=== PATIENT | female | born 1970 | race American Indian/Alaskan Native ===

== ENCOUNTER 2017-07-19 07:13 | Emergency (ER) | payer SELFPAY ==
--- NOTE | 2017-07-19 13:06 | Emergency Department Report ---
ED ENT HPI - General Chief complaint: Earache Stated complaint: LEFT EAR PAIN Time Seen by Provider: 07/19/17 12:34 Source: patient Mode of arrival: Ambulatory Limitations: No Limitations - History of Present Illness Initial comments: This is a 46-year-old female nontoxic, well nourished in appearance, no acute signs of distress presents to the ED with c/o of left earache x3 days. Patient stated this is a chronic intermittent earache that she develops and last episode was 2 months ago and was prescribed augmentin and "ear drops". Patient denies any hearing changes or hearing loss. Patient denies mastoid tenderness. Denies any fever, chills, headache, nausea, vomiting, numbness, tingling, chest pain, shortness of breathe, stiff neck. Patient states has tragus pain. Denies any ear discharge. Patient denies any drug allergies. PMH includes GERD. MD complaint: ear pain -: days(s) (3) Location: L ear Severity: mild Severity scale (0 -10): 8 Quality: aching Consistency: constant Improves with: none Worsens with: none Associated Symptoms: denies: fever, cough, gum swelling, toothache, pain with swallowing, sore throat, tinnitus, hearing loss, discharge from ear, rhinorrhea - Related Data Home Medications Medication Instructions Recorded Confirmed Last Taken Loratadine [Claritin] 10 mg PO DAILY 09/22/13 09/22/13 10/01/13 15:00 Ranitidine HCl [Ranitidine HCl] 150 mg PO DAILY 09/22/13 09/22/13 10/01/13 15:00 Simvastatin [Simvastatin] 20 mg PO DAILY 09/22/13 09/22/13 10/02/13 18:00 Previous Rx's Medication Instructions Recorded Last Taken Type HYDROcodone/APAP 5-325 [[place] 2 each PO Q6H PRN #30 tablet 10/04/13 Unknown Rx 5-325 mg TAB] Amoxicillin/Potassium Clav 1 each PO Q12H #20 tablet 07/19/17 Unknown Rx [Augmentin 500-125 Tablet] Ciprofloxacin/Hydrocortisone 3 drop OT BID 7 Days bottle 07/19/17 Unknown Rx [Ciprofloxacin HC OTIC] Allergies Allergy/AdvReac Type Severity Reaction Status Date / Time No Known Allergies Allergy Unverified 09/22/13 08:24 ED Dental HPI - General Chief complaint: Earache Stated complaint: LEFT EAR PAIN Time Seen by Provider: 07/19/17 12:34 Source: patient Mode of arrival: Ambulatory Limitations: No Limitations - Related Data Home Medications Medication Instructions Recorded Confirmed Last Taken Loratadine [Claritin] 10 mg PO DAILY 09/22/13 09/22/13 10/01/13 15:00 Ranitidine HCl [Ranitidine HCl] 150 mg PO DAILY 09/22/13 09/22/13 10/01/13 15:00 Simvastatin [Simvastatin] 20 mg PO DAILY 09/22/13 09/22/13 10/02/13 18:00 Previous Rx's Medication Instructions Recorded Last Taken Type HYDROcodone/APAP 5-325 [[place] 2 each PO Q6H PRN #30 tablet 10/04/13 Unknown Rx 5-325 mg TAB] Amoxicillin/Potassium Clav 1 each PO Q12H #20 tablet 07/19/17 Unknown Rx [Augmentin 500-125 Tablet] Ciprofloxacin/Hydrocortisone 3 drop OT BID 7 Days bottle 07/19/17 Unknown Rx [Ciprofloxacin HC OTIC] Allergies Allergy/AdvReac Type Severity Reaction Status Date / Time No Known Allergies Allergy Unverified 09/22/13 08:24 ED Review of Systems ROS: Stated complaint: LEFT EAR PAIN Other details as noted in HPI Constitutional: denies: chills, fever Eyes: denies: eye pain, eye discharge, vision change ENT: ear pain. denies: throat pain Respiratory: denies: cough, shortness of breath, wheezing Cardiovascular: denies: chest pain, palpitations Endocrine: no symptoms reported Gastrointestinal: denies: abdominal pain, nausea, diarrhea Genitourinary: denies: urgency, dysuria, discharge Musculoskeletal: denies: back pain, joint swelling, arthralgia Skin: denies: rash, lesions Neurological: denies: headache, weakness, paresthesias Psychiatric: denies: anxiety, depression Hematological/Lymphatic: denies: easy bleeding, easy bruising ED Past Medical Hx - Past Medical History Previous Medical History?: Yes Hx Hypertension: No Hx Congestive Heart Failure: No Hx Diabetes: No Hx GERD: Yes Hx Renal Disease: No Hx Seizures: No Hx Asthma: No Hx COPD: No - Surgical History Past Surgical History?: No - Social History Smoking Status: Never Smoker Substance Use Type: Alcohol - Medications Home Medications: Home Medications Medication Instructions Recorded Confirmed Last Taken Type Loratadine [Claritin] 10 mg PO DAILY 09/22/13 09/22/13 10/01/13 15:00 History Ranitidine HCl [Ranitidine HCl] 150 mg PO DAILY 09/22/13 09/22/13 10/01/13 15: 00 History Simvastatin [Simvastatin] 20 mg PO DAILY 09/22/13 09/22/13 10/02/13 18:00 History HYDROcodone/APAP 5-325 [[place] 2 each PO Q6H PRN #30 tablet 10/04/13 Unknown Rx 5-325 mg TAB] Amoxicillin/Potassium Clav 1 each PO Q12H #20 tablet 07/19/17 Unknown Rx [Augmentin 500-125 Tablet] Ciprofloxacin/Hydrocortisone 3 drop OT BID 7 Days bottle 07/19/17 Unknown Rx [Ciprofloxacin HC OTIC] ED Physical Exam - General Limitations: No Limitations General appearance: alert, in no apparent distress - Head Head exam: Present: atraumatic, normocephalic - Eye Eye exam: Present: normal appearance, PERRL, EOMI. Absent: scleral icterus, nystagmus, periorbital swelling, periorbital tenderness Pupils: Present: normal accommodation - ENT ENT exam: Present: normal exam, normal orophraynx, mucous membranes moist - Expanded ENT Exam Expanded Ear exam: Present: normal external inspection TM/Canal exam: Erythema: Left TM, Bulging: Left TM Mouth exam: Present: normal external inspection, tongue normal. Absent: drooling, trismus, muffled voice, tongue elevation, laceration Teeth exam: Present: normal inspection Throat exam: Positive: normal inspection. Negative: tonsillar erythema, tonsillomegaly, tonsillar exudate, R peritonsillar mass, L peritonsillar mass - Neck Neck exam: Present: normal inspection, full ROM. Absent: tenderness, meningismus, lymphadenopathy, thyromegaly - Respiratory Respiratory exam: Present: normal lung sounds bilaterally. Absent: respiratory distress, wheezes, rales, rhonchi, stridor, chest wall tenderness, accessory muscle use, decreased breath sounds, prolonged expiratory - Cardiovascular Cardiovascular Exam: Present: regular rate, normal rhythm, normal heart sounds. Absent: bradycardia, tachycardia, irregular rhythm, systolic murmur, diastolic murmur, rubs, gallop - GI/Abdominal GI/Abdominal exam: Present: soft, normal bowel sounds. Absent: distended, tenderness, guarding, rigid, diminished bowel sounds - Rectal Rectal exam: Present: deferred - Extremities Exam Extremities exam: Present: normal inspection, full ROM, normal capillary refill. Absent: tenderness - Back Exam Back exam: Present: normal inspection, full ROM. Absent: tenderness, CVA tenderness (R), CVA tenderness (L), muscle spasm, paraspinal tenderness, vertebral tenderness, rash noted - Neurological Exam Neurological exam: Present: alert, oriented X3, CN II-XII intact, normal gait, reflexes normal - Psychiatric Psychiatric exam: Present: normal affect, normal mood - Skin Skin exam: Present: warm, dry, intact, normal color. Absent: rash - Other Other exam information: Negative mastoid tenderness. Tenderness in the tragus region. No facial swelling. ED Course Vital Signs 07/19/17 07:34 Temperature 98.2 F Pulse Rate 87 Respiratory 16 Rate Blood Pressure 135/88 O2 Sat by Pulse 95 Oximetry - Reevaluation(s) Reevaluation #1: 07/19/17 13:10 Patient is speaking in full sentences with no signs of distress noted. ED Medical Decision Making - Medical Decision Making This is a 46-year-old female that presents with chronic intermittent otitis media and otitis extrna. Patient is stable and was examined by me. There is no mastoid tenderness or erythema. PAtient stated last episode was last month and received PO anibiotics and ear drops. PAtient is discharge with agumentin and cipro due to recurrent ear infections. Patient was instructed Follow-up with a ENT doctor in 3-5 days or if symptoms worsen and continue return to emergency room as soon as possible. At time time of discharge, the patient does not seem toxic or ill in appearance. No acute signs of distress noted. Patient agrees to discharge treatment plan of care. No further questions noted by the patient. Critical care attestation.: If time is entered above; I have spent that time in minutes in the direct care of this critically ill patient, excluding procedure time. ED Disposition Clinical Impression: Otitis media Qualifiers: Otitis media type: unspecified Laterality: right Qualified Code(s): H66.91 - Otitis media, unspecified, right ear Otitis externa Qualifiers: Otitis externa type: unspecified type Chronicity: unspecified Laterality: right Qualified Code(s): H60.91 - Unspecified otitis externa, right ear Disposition: DC-01 TO HOME OR SELFCARE Is pt being admited?: No Does the pt Need Aspirin: No Condition: Stable Instructions: Otitis Media (ED), Otitis Externa (ED) Additional Instructions: Follow-up with a primary care doctor in 3-5 days or if symptoms worsen and continue return to emergency room as soon as possible. Prescriptions: Amoxicillin/Potassium Clav [Augmentin 500-125 Tablet] 1 each PO Q12H #20 tablet Ciprofloxacin/Hydrocortisone [Ciprofloxacin HC OTIC] 3 drop OT BID 7 Days bottle Referrals: SHWETA MOONEY MD [Primary Care Provider] - 3-5 Days CHARLY TAM MD [Staff Physician] - 3-5 Days [facility] [Outside] - 3-5 Days [facility] [Outside] - 3-5 Days Forms: Work/School Release Form(ED)
[2017-07-19 13:41] VITALS: BP 136/89
== END 2017-07-19 13:41 | disposition home or self-care (01) ==
LOC: ED 07:13
DX: H66.91 Otitis media, unspecified, right ear (principal); H60.91 Unspecified otitis externa, right ear; K21.9 Gastro-esophageal reflux disease without esophagitis
CPT/HCPCS: 99282

== ENCOUNTER 2019-10-09 14:37 | Emergency (ER) | payer SELFPAY ==
[2019-10-09 14:48] VITALS: BP 146/85
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
== END 2019-10-09 15:50 | disposition left against medical advice (07) ==
LOC: ED 14:37
DX: S46.819A Strain of other muscles, fascia and tendons at shoulder and upper arm level, unspecified arm, initial encounter (principal); S39.012A Strain of muscle, fascia and tendon of lower back, initial encounter; V89.2XXA Person injured in unspecified motor-vehicle accident, traffic, initial encounter; Y93.89 Activity, other specified; Y92.410 Unspecified street and highway as the place of occurrence of the external cause; Y99.8 Other external cause status
CPT/HCPCS: 99282

== ENCOUNTER 2020-05-14 22:57 | Emergency (ER) | payer SELFPAY ==
[2020-05-15 02:15] LABS: Basophils % (Auto) 0.3 % (0.0-1.8); Eosinophils # (Auto) 0.1 K/mm3 (0.0-0.4); Eosinophils % (Auto) 0.8 % (0.0-4.3); Hematocrit 39.4 % (30.3-42.9); Hemoglobin 13.3 gm/dl (10.1-14.3); Lymphocytes # (Auto) 2.9 K/mm3 (1.2-5.4); Lymphocytes % (Auto) 44.4 % (13.4-35.0); Mean Corpuscular HGB Conc 34 % (30-34); Mean Corpuscular Volume 87 fl (79-97); Monocytes # (Auto) 0.5 K/mm3 (0.0-0.8); Monocytes % (Auto) 7.6 % (0.0-7.3); Platelet Count 280 K/mm3 (140-440); Red Blood Count 4.55 M/mm3 (3.65-5.03); Red Cell Distribution Width 13.6 % (13.2-15.2)
[2020-05-15 02:16] LABS: Alanine Aminotransferase 17 units/L (7-56); Albumin 4.5 g/dL (3.9-5); Blood Urea Nitrogen 11 mg/dL (7-17); Calcium 9.6 mg/dL (8.4-10.2); Hemolysis Index 8
[2020-05-15 02:27] LABS: BUN/Creatinine Ratio 18
[2020-05-15 05:16] LABS: Bacteria,Urine 2+ /HPF (Negative); Bilirubin,Urine NEG (Negative); Blood,Urine SM (Negative); Color,Urine Yellow (Yellow); Protein,Urine <15 mg/dL mg/dL (Negative); Urobilinogen,Urine < 2.0 mg/dL (<2.0)
--- NOTE | 2020-05-15 05:40 | Emergency Department Report ---
ED General Adult HPI - General Chief complaint: Abdominal Pain Stated complaint: RT EAR, LF SIDE PAIN Source: patient Mode of arrival: Ambulatory Limitations: No Limitations - History of Present Illness Initial comments: Patient is a 49-year-old -[place] female with a history of hyperlipidemia and GERD who presents to the ED with complaint of acute onset persistent severe right ear pain, right mandibular premolar molar toothache with swollen mandibular gums for the last 1 week, worse in the last 2 days. Patient also complains of left lower back pain for the last 3 days. Patient states that she has been taking [id number] pain medications with no relief. Patient denies fever, chills, nausea, vomiting, dizziness, syncope, chest pain, shortness of breath, dysuria, urinary frequency and urgency, vaginal bleeding, vaginal discharge, abdominal pain, cough, sore throat and palpitations. MD Complaint: Right ear, dental abscess; left lower back pain -: Sudden, week(s) (1) Location: face (right ear), mouth, back (lower) Radiation: non-radiation Severity scale (0 -10): 7 Quality: aching, sharp, constant Consistency: constant Improves with: none Worsens with: none Associated Symptoms: denies other symptoms. denies: confusion, chest pain, cough, diaphoresis, fever/chills, headaches, loss of appetite, malaise, nausea/vomiting, rash, seizure, shortness of breath, syncope Treatments Prior to Arrival: none - Related Data Home Medications Medication Instructions Recorded Confirmed Last Taken Loratadine (Nf) [Claritin (Nf)] 10 mg PO DAILY 09/22/13 09/22/13 10/01/13 15:00 Simvastatin 20 mg PO DAILY 09/22/13 09/22/13 10/02/13 18:00 raNITIdine HCL [Ranitidine HCl] 150 mg PO DAILY 09/22/13 09/22/13 10/01/13 15:00 Previous Rx's Medication Instructions Recorded Last Taken Type HYDROcodone/APAP 5-325 [[place] 2 each PO Q6H PRN #30 tablet 10/04/13 Unknown Rx 5-325 mg TAB] Amoxicillin/Potassium Clav 1 each PO Q12H #20 tablet 07/19/17 Unknown Rx [Augmentin 500-125 Tablet] Ciprofloxacin/Hydrocortisone 3 drop OT BID 7 Days bottle 07/19/17 Unknown Rx [Ciprofloxacin HC OTIC] Clindamycin [Clindamycin CAP] 300 mg PO Q8HR #60 capsule 05/15/20 Unknown Rx Ketorolac [Toradol] 10 mg PO Q8H PRN #20 tablet 05/15/20 Unknown Rx tiZANidine [Zanaflex 4mg TAB] 4 mg PO Q8H PRN #21 tablet 05/15/20 Unknown Rx traMADoL [Ultram] 50 mg PO Q6HR PRN #12 tablet 05/15/20 Unknown Rx Allergies Allergy/AdvReac Type Severity Reaction Status Date / Time No Known Allergies Allergy Unverified 09/22/13 08:24 ED Review of Systems ROS: Stated complaint: RT EAR, LF SIDE PAIN Other details as noted in HPI Constitutional: denies: chills, fever Eyes: denies: eye pain, eye discharge, vision change ENT: ear pain (Right ear pain), dental pain (Right mandibular premolar molar toothache with swollen gums). denies: throat pain Respiratory: denies: cough, shortness of breath, wheezing Cardiovascular: denies: chest pain, palpitations Endocrine: no symptoms reported Gastrointestinal: denies: abdominal pain, nausea, vomiting, diarrhea Genitourinary: denies: urgency, dysuria, discharge Musculoskeletal: back pain (Low back pain). denies: joint swelling, arthralgia Skin: denies: rash, lesions Neurological: denies: headache, weakness, paresthesias Psychiatric: denies: anxiety, depression Hematological/Lymphatic: denies: easy bleeding, easy bruising ED Past Medical Hx - Past Medical History Hx Hypertension: No Hx Congestive Heart Failure: No Hx Diabetes: No Hx GERD: Yes Hx Renal Disease: No Hx Seizures: No Hx Asthma: No Hx COPD: No Additional medical history: Hyperlipidemia - Social History Smoking Status: Never Smoker Substance Use Type: None - Medications Home Medications: Home Medications Medication Instructions Recorded Confirmed Last Taken Type Loratadine (Nf) [Claritin (Nf)] 10 mg PO DAILY 09/22/13 09/22/13 10/01/13 15:00 History Simvastatin 20 mg PO DAILY 09/22/13 09/22/13 10/02/13 18:00 History raNITIdine HCL [Ranitidine HCl] 150 mg PO DAILY 09/22/13 09/22/13 10/01/13 15:00 History HYDROcodone/APAP 5-325 [[place] 2 each PO Q6H PRN #30 tablet 10/04/13 Unknown Rx 5-325 mg TAB] Amoxicillin/Potassium Clav 1 each PO Q12H #20 tablet 07/19/17 Unknown Rx [Augmentin 500-125 Tablet] Ciprofloxacin/Hydrocortisone 3 drop OT BID 7 Days bottle 07/19/17 Unknown Rx [Ciprofloxacin HC OTIC] Clindamycin [Clindamycin CAP] 300 mg PO Q8HR #60 capsule 05/15/20 Unknown Rx Ketorolac [Toradol] 10 mg PO Q8H PRN #20 tablet 05/15/20 Unknown Rx tiZANidine [Zanaflex 4mg TAB] 4 mg PO Q8H PRN #21 tablet 05/15/20 Unknown Rx traMADoL [Ultram] 50 mg PO Q6HR PRN #12 tablet 05/15/20 Unknown Rx ED Physical Exam - General Limitations: No Limitations General appearance: alert, in no apparent distress - Head Head exam: Present: atraumatic, normocephalic, normal inspection - Eye Eye exam: Present: normal appearance, PERRL, EOMI Pupils: Present: normal accommodation - ENT ENT exam: Present: normal orophraynx, mucous membranes moist, normal external ear exam, other (Swollen, right external ear canal with bulging erythematous tympanic membrane; swollen, severely tender right mandibular gingiva with premolar molar teeth tenderness) - Neck Neck exam: Present: normal inspection, full ROM. Absent: tenderness - Respiratory Respiratory exam: Present: normal lung sounds bilaterally. Absent: respiratory distress, wheezes, rhonchi, chest wall tenderness, accessory muscle use, decreased breath sounds - Cardiovascular Cardiovascular Exam: Present: regular rate, normal rhythm, normal heart sounds. Absent: systolic murmur, diastolic murmur, rubs, gallop - GI/Abdominal GI/Abdominal exam: Present: soft, normal bowel sounds. Absent: tenderness, guarding, hyperactive bowel sounds, hypoactive bowel sounds - Extremities Exam Extremities exam: Present: normal inspection, full ROM, normal capillary refill - Back Exam Back exam: Present: normal inspection, full ROM. Absent: tenderness, CVA tenderness (R), muscle spasm, paraspinal tenderness, vertebral tenderness - Neurological Exam Neurological exam: Present: alert, oriented X3, CN II-XII intact, normal gait, reflexes normal - Psychiatric Psychiatric exam: Present: normal affect, normal mood - Skin Skin exam: Present: warm, dry, intact, normal color. Absent: rash ED Medical Decision Making - Lab Data Result diagrams: 05/15/20 01:23 05/15/20 01:23 - Medical Decision Making This is a 49-year-old -[place] female with a history of hyperlipidemia and GERD who presents to the ED with complaint of acute onset persistent severe right ear pain, right mandibular premolar molar toothache with swollen mandibular gums for the last 1 week, worse in the last 2 days. Patient also complains of left lower back pain for the last 3 days. Patient states that she has been taking [id number] pain medications with no relief. In the ED, jose linaers is alert and oriented x3 and is not in any distress but appears to be in pain. Patient was treated for pain in the ED and discharged home on pain medications and oral antibiotics. Lab test results were reviewed and are all nonactionable. Patient was advised to follow-up with a dentist and primary care physician in 7 to 10 days for reevaluation return to the ED immediately if symptoms get worse. - Differential Diagnosis Dental abscess; gingivitis; otitis media; otitis externa; Critical care attestation.: If time is entered above; I have spent that time in minutes in the direct care of this critically ill patient, excluding procedure time. ED Disposition Clinical Impression: Acute suppurative otitis media of right ear, Dental abscess, Acute gingivitis, Spasm of muscle of lower back Disposition: DC-01 TO HOME OR SELFCARE Is pt being admited?: No Does the pt Need Aspirin: No Condition: Stable Instructions: Abdominal Pain (ED), Otitis Media (ED), Muscle Cramps and Spasms, [id number], Otitis Media, Adult, [id number], Dental Abscess, [id number] Additional Instructions: Take medication with food, drink plenty of fluids and follow-up with your primary care physician or dentist in 7 to 10 days for reevaluation. Return to the ED immediately if symptoms get worse. Prescriptions: Clindamycin [Clindamycin CAP] 300 mg PO Q8HR #60 capsule Ketorolac [Toradol] 10 mg PO Q8H PRN #20 tablet PRN Reason: Pain traMADoL [Ultram] 50 mg PO Q6HR PRN #12 tablet PRN Reason: Pain tiZANidine [Zanaflex 4mg TAB] 4 mg PO Q8H PRN #21 tablet PRN Reason: Muscle Spasm Referrals: SY SINGLETON MD [Primary Care Provider] - 3-5 Days [facility] [Outside] - 3-5 Days Time of Disposition: 05:42 Print Language: [place]
[2020-05-15 05:41] VITALS: BP 148/102
== END 2020-05-15 06:00 | disposition home or self-care (01) ==
LOC: ED 22:57
DX: H66.001 Acute suppurative otitis media without spontaneous rupture of ear drum, right ear (principal); M62.830 Muscle spasm of back; K05.00 Acute gingivitis, plaque induced; K04.7 Periapical abscess without sinus; E78.5 Hyperlipidemia, unspecified; K21.9 Gastro-esophageal reflux disease without esophagitis; Z79.899 Other long term (current) drug therapy
CPT/HCPCS: 36415; 80053; 81001; 85025; 99283